=== PATIENT | female | born 1945 | race Asian ===

== ENCOUNTER → 2018-10-24 | Outpatient (CLI) | payer MEDICARE, OTHER ==
[~2018-10-24] MED LIST: ACET-66 PO; AMLO10TA7 PO; ATOR10TA84 PO; MULT-1259 PO; OMEP20 PO
== END | disposition home or self-care (01) ==
LOC: RADPV 08:08
PROVIDERS: ATTEND Physician Assistant
DX: M81.0 Age-related osteoporosis without current pathological fracture (principal); M85.88 Other specified disorders of bone density and structure, other site
CPT/HCPCS: 77080